=== PATIENT | male | born 1945 | race Caucasian/White ===

== ENCOUNTER 2019-01-20 14:57 | Emergency (ER) | payer OTHER, MEDICARE ==
--- NOTE | 2019-01-20 16:01 | ER Document Report ---
ED Medical Screen (RME) - General Chief Complaint: Fall Stated Complaint: FALL Time Seen by Provider: 01/20/19 15:59 Primary Care Provider: TUAN CARDONA MD [Primary Care Provider] - Follow up as needed Information source: Patient Notes: Patient presents complaining of generalized weakness with nausea and frequent falls over the past 4 days. Patient denies any head injury or loss of consciousness. Patient denies any chest pain difficulty breathing. I have greeted and performed a rapid initial assessment of this patient. A comprehensive ED assessment and evaluation of the patient, analysis of test results and completion of the medical decision making process will be conducted by additional ED providers. TRAVEL OUTSIDE OF THE [place] IN LAST 30 DAYS: No - Related Data Allergies/Adverse Reactions: pneumonia shot Allergy (Severe, Uncoded 08/21/14 09:53) "very sick" Past Medical History - Past Medical History Cardiac Medical History: Denies: Hx Coronary Artery Disease, Hx Heart Attack, Hx Hypertension Pulmonary Medical History: Denies: Hx Asthma, Hx Bronchitis, Hx COPD, Hx Pneumonia Neurological Medical History: Denies: Hx Cerebrovascular Accident, Hx Seizures GI Medical History: Denies: Hx Hepatitis, Hx Hiatal Hernia, Hx Ulcer Musculoskeltal Medical History: Reports Hx Arthritis - Gout Psychiatric Medical History: Reports: Hx Depression Infectious Medical History: Denies: Hx Hepatitis Past Surgical History: Reports: Hx Orthopedic Surgery - osteomylitis right t ibia. Denies: Hx Open Heart Surgery, Hx Pacemaker - Immunizations Hx Diphtheria, Pertussis, Tetanus Vaccination: Yes - 07/28 Physical Exam - Vital signs Vitals: Temp Pulse Resp BP Pulse Ox 98.0 F 88 18 108/74 94 01/20/19 15:04 01/20/19 15:04 01/20/19 15:04 01/20/19 15:04 01/20/19 15:04 - Cardiovascular Rhythm: Regular Heart sounds: S1 appreciated, S2 appreciated Course - Vital Signs Vital signs: Temp Pulse Resp BP Pulse Ox 98.0 F 88 18 108/74 94 01/20/19 15:04 01/20/19 15:04 01/20/19 15:04 01/20/19 15:04 01/20/19 15:04 Doctor's Discharge - Discharge Referrals: TUAN CARDONA MD [Primary Care Provider] - Follow up as needed
[2019-01-20 17:29] LABS: ABSOLUTE BASOPHILS # (AUTO) 0.1 10^3/uL (0.0-0.2); ABSOLUTE EOSINOPHILS # (AUTO) 0.2 10^3/uL (0.0-0.6); ABSOLUTE LYMPHOCYTES (AUTO) 1.5 10^3/uL (0.5-4.7); ABSOLUTE MONOCYTES (AUTO) 0.8 10^3/uL (0.1-1.4); ABSOLUTE NEUT (AUTO) 4.5 10^3/uL (1.7-8.2); BASOPHILS % (AUTO) 0.8 % (0-2); EOSINOPHILS % (AUTO) 3.1 % (0-6); HEMATOCRIT 48.2 % (37.9-51.0); HEMOGLOBIN 16.6 g/dL (13.5-17.0); LYMPHOCYTES % (AUTO) 21.1 % (13-45); MEAN CORPUSCULAR HEMOGLOBIN 31.2 pg (27.0-33.4); MEAN CORPUSCULAR HGB CONC 34.4 g/dL (32.0-36.0); MEAN CORPUSCULAR VOLUME 91 fl (80-97); MONOCYTES % (AUTO) 11.8 % (3-13); PLATELET COUNT 149 10^3/uL (150-450); SEGMENTED NEUTROPHILS % (AUTO) 63.2 % (42-78); TOTAL CELLS COUNTED % (AUTO) 100 %; WHITE BLOOD COUNT 7.2 10^3/uL (4.0-10.5)
[2019-01-20 17:30] LABS: APPEARANCE,URINE CLEAR; BILIRUBIN,URINE NEGATIVE (NEGATIVE); COLOR,URINE YELLOW; GLUCOSE, URINE NEGATIVE (NEGATIVE); KETONES,URINE NEGATIVE (NEGATIVE); LEUKOCYTE ESTERASE,URINE NEGATIVE (NEGATIVE); NITRITE,URINE NEGATIVE (NEGATIVE); PROTEIN,URINE NEGATIVE (NEGATIVE); URINE SPECIFIC GRAVITY 1.009; UROBILINOGEN,URINE NEGATIVE mg/dL (<2.0)
[2019-01-20 17:58] LABS: ALBUMIN 4.8 g/dL (3.5-5.0); ALKALINE PHOSPHATASE 53 U/L (38-126); ANION GAP 11 (5-19); ASPARTATE AMINO TRANSFERASE 28 U/L (17-59); BILIRUBIN,DIRECT 0.1 mg/dL (0.0-0.4); BILIRUBIN,TOTAL 0.7 mg/dL (0.2-1.3); BLOOD UREA NITROGEN 13 mg/dL (7-20); CALCIUM 10.3 mg/dL (8.4-10.2); CARBON DIOXIDE 29 mmol/L (22-30); CHLORIDE 102 mmol/L (98-107); GLUCOSE 86 mg/dL (75-110); POTASSIUM 4.5 mmol/L (3.6-5.0); TOTAL PROTEIN 8.1 g/dL (6.3-8.2)
--- NOTE | 2019-01-20 18:15 | EKG REPORT ---
SEVERITY:- OTHERWISE NORMAL ECG - SINUS RHYTHM LEFT AXIS DEVIATION NONSPECIFIC ST-T CHANGES- INFERIOR LEADS EARLY PRECORDIAL TRANSITION, CONSIDER OLD TRUE [place] : Confirmed by: Bryan Morales MD 20-Jan-2019 18:12:15
--- NOTE | 2019-01-20 18:28 | RADIOLOGY REPORT (SQ) ---
EXAM DESCRIPTION: CT HEAD WITHOUT COMPLETED DATE/TIME: 01/20/2019 4:50 pm REASON FOR STUDY: weak, fall COMPARISON: None. TECHNIQUE: Axial images acquired through the brain without intravenous contrast. Images reviewed wi th bone, brain and subdural windows. Images stored on PACS. All CT scanners at this facility use dose modulation, iterative reconstruction, and/or weight based d osing when appropriate to reduce radiation dose to as low as reasonably achievable (ALARA). [facility]: Dose Right [facility]: CareDose [facility]: Dose Right [facility]: Teradose 4D [facility]: mAPPn RADIATION DOSE: CT Rad equipment meets quality standard of care and radiation dose reduction techniq ues were employed. CTDIvol: 53.2 mGy. DLP: 991 mGy-cm. mGy. LIMITATIONS: None. FINDINGS: VENTRICLES: Normal size and contour. CEREBRUM: No masses. No hemorrhage. No midline shift. No evidence for acute infarction. Normal gra y/white matter differentiation. No areas of low density in the white matter. CEREBELLUM: No masses. No hemorrhage. No alteration of density. No evidence for acute infarction. EXTRAAXIAL SPACES: No fluid collections. No masses. ORBITS AND GLOBE: No intra- or extraconal masses. Normal contour of globe without masses. CALVARIUM: No fracture. PARANASAL SINUSES: No fluid or mucosal thickening. SOFT TISSUES: No mass or hematoma. OTHER: No other significant finding. IMPRESSION: NORMAL BRAIN CT WITHOUT CONTRAST. EVIDENCE OF ACUTE STROKE: NO. COMMENT: Quality ID # [id number]: Final reports with documentation of one or more dose reduction techniques (e.g., Automated exposure control, adjustment of the mA and/or kV according to patient size, use of iterative reconstruction technique) TECHNICAL DOCUMENTATION: JOB ID: [id number]- All Rights Reserved Reading location - IP/workstation name: [email or web address]
--- NOTE | 2019-01-20 18:39 | RADIOLOGY REPORT (SQ) ---
EXAM DESCRIPTION: CHEST 2 VIEWS COMPLETED DATE/TIME: 01/20/2019 4:36 pm REASON FOR STUDY: weak, fall COMPARISON: 12/19/2013 EXAM PARAMETERS: NUMBER OF VIEWS: two views TECHNIQUE: Digital Frontal and Lateral radiographic views of the chest acquired. RADIATION DOSE: NA LIMITATIONS: none FINDINGS: LUNGS AND PLEURA: No opacities, masses or pneumothorax. No pleural effusion. MEDIASTINUM AND HILAR STRUCTURES: No masses or contour abnormalities. HEART AND VASCULAR STRUCTURES: Heart normal size. No evidence for failure. BONES: No acute findings. HARDWARE: None in the chest. OTHER: No other significant finding. IMPRESSION: NO ACUTE RADIOGRAPHIC FINDING IN THE CHEST. TECHNICAL DOCUMENTATION: JOB ID: [id number] [employer]- All Rights Reserved Reading location - IP/workstation name: [email or web address]
--- NOTE | 2019-01-20 21:04 | ER Document Report ---
ED General - General Chief Complaint: Fall Stated Complaint: FALL Time Seen by Provider: 01/20/19 15:59 Notes: Patient is a 73-year-old male that comes emergency department for chief complaint of confusion, unsteadiness, shakiness. This is been intermittent for the past several days. Friend at bedside states patient was having trouble focusing and getting numbers right at bingo a couple of days ago, he also seemed more confused than normal, patient states he has been at times shakier than normal. He states that he did not have any fall injury but he did get really shaky, eased down to the ground, and then waited for the shakiness to pass before he got up and started walking around again. Is still eating and drinking, denies fever, denies focal numbness weakness, denies headache, denies vomiting. He states that now he does not have any complaints, he does not feel any different than his baseline, friend at bedside states he is acting normally today. Past medical history includes hypothyroidism, GERD, hyperlipidemia, anxiety/depression, and tremors for which he has been started on medications including olanzapine, Wellbutrin, etc. He also states these are getting adjusted. TRAVEL OUTSIDE OF THE [place] IN LAST 30 DAYS: No - Related Data Allergies/Adverse Reactions: pneumonia shot Allergy (Severe, Uncoded 08/21/14 09:53) "very sick" Past Medical History - General Information source: Patient - Social History Smoking Status: Never Smoker Family History: Reviewed & Not Pertinent Patient has suicidal ideation: No Patient has homicidal ideation: No - Past Medical History Cardiac Medical History: Denies: Hx Coronary Artery Disease, Hx Heart Attack, Hx Hypertension Pulmonary Medical History: Denies: Hx Asthma, Hx Bronchitis, Hx COPD, Hx Pneumonia Neurological Medical History: Denies: Hx Cerebrovascular Accident, Hx Seizures GI Medical History: Denies: Hx Hepatitis, Hx Hiatal Hernia, Hx Ulcer Musculoskeletal Medical History: Reports Hx Arthritis - Gout Psychiatric Medical History: Reports: Hx Depression Infectious Medical History: Denies: Hx Hepatitis Past Surgical History: Reports: Hx Orthopedic Surgery - osteomylitis right tibia. Denies: Hx Open Heart Surgery, Hx Pacemaker - Immunizations Hx Diphtheria, Pertussis, Tetanus Vaccination: Yes - 07/28 Hx Pneumococcal Vaccination: 04/16/10 Review of Systems - Review of Systems Constitutional: See HPI EENT: No symptoms reported Cardiovascular: No symptoms reported Respiratory: No symptoms reported Gastrointestinal: No symptoms reported Genitourinary: No symptoms reported Male Genitourinary: No symptoms reported Musculoskeletal: See HPI Skin: No symptoms reported Hematologic/Lymphatic: No symptoms reported Neurological/Psychological: See HPI Physical Exam - Vital signs Vitals: Temp Pulse Resp BP Pulse Ox 98.0 F 88 18 108/74 94 01/20/19 15:04 01/20/19 15:04 01/20/19 15:04 01/20/19 15:04 01/20/19 15:04 - Notes Notes: GENERAL: Alert, interacts well. No acute distress. HEAD: Normocephalic, atraumatic. EYES: Pupils equal, round, and reactive to light. Extraocular movements intact. ENT: Oral mucosa moist, tongue midline. Oropharynx unremarkable. Airway patent. NECK: Full range of motion. Supple. Trachea midline. LUNGS: Clear to auscultation bilaterally, no wheezes, rales, or rhonchi. No respiratory distress. HEART: Regular rate and rhythm. No murmur ABDOMEN: Soft, non-tender. Non-distended. Bowel sounds present in all 4 quadrants. GENITOURINARY: Deferred EXTREMITIES: Moves all 4 extremities spontaneously. No edema, normal radial and dorsalis pedis pulses bilaterally. No cyanosis. BACK: no cervical, thoracic, lumbar midline tenderness. No saddle anesthesia, normal distal neurovascular exam. Moves all extremities in full range of motion. NEUROLOGICAL: Alert and oriented x3. Normal speech. Essential tremor noted with movements of the arms. Cranial nerves II through XII grossly intact. PSYCH: Normal affect, normal mood. SKIN: Warm, dry, normal turgor. No rashes or lesions noted. Course - Re-evaluation Re-evalutation: Patient's reported symptoms of difficulty thinking clearly, increased shaking from normal, and generalized weakness were concerning so a work-up was performed, however patient does not have the symptoms now. He does have a mild essential tremor on my evaluation but he states this is chronic and friend also states this is his baseline. Patient denies any new complaints at this time. He did have his psychiatric medications adjusted, he is on olanzapine, Wellbutrin, etc. He does have a psychiatrist and primary care provider. CAT scan of the head is unremarkable, laboratory work-up is completely unremarkable, vital signs unremarkable. Chest x-ray unremarkable. I discussed this with patient, he is very appreciative and relieved. He is requesting to leave and follow-up with his primary provider. I did discuss return precautions including signs of CVA, they state understanding and agreement. - Vital Signs Vital signs: Temp Pulse Resp BP Pulse Ox 98.4 F 84 16 148/72 H 93 01/20/19 21:37 01/20/19 21:37 01/20/19 21:37 01/20/19 21:37 01/20/19 19:53 - Laboratory Result Diagrams: 01/20/19 17:00 01/20/19 17:00 Laboratory results interpreted by me: 01/20/19 01/20/19 17:00 17:00 Plt Count 149 L Calcium 10.3 H Discharge - Discharge Clinical Impression: Shakiness, Weakness, Confusion Condition: Stable Disposition: HOME, SELF-CARE Additional Instructions: The CAT scan imaging of the head, the laboratory, EKG, chest x-ray work-ups do not show any concerning findings at this time. Your evaluation is reassuring at this time as well. I suspect your symptoms were from medication side effects, please follow-up closely with your primary providers to have your dosing discussed and possibly adjusted. Return for any concerning symptoms including severe headache, focal numbness or weakness, returned confusion, fever, vomiting, chest pain, passing out, or any other concerning symptoms.
[2019-01-20 21:40] VITALS: BP 148/72
== END 2019-01-20 21:37 | disposition home or self-care (01) ==
LOC: ER 14:57
DX: R25.1 Tremor, unspecified (principal); R53.1 Weakness; R41.0 Disorientation, unspecified; Z79.899 Other long term (current) drug therapy
CPT/HCPCS: 36415; 70450; 71046; 80053; 81001; 82962; 83735; 84484; 85025; 93005; 93010; 99285